=== PATIENT | male | born 1990 ===

== ENCOUNTER 2023-03-23 17:26 | Emergency (ER) | payer BC ==
[~2023-03-23] VITALS: Ht 185.4 cm; Wt 56.4 kg
[2023-03-23 17:56] VITALS: BP 117/78; PULSE 63; RESP 18; TEMP 98.2; O2SAT 99
== END 2023-03-23 18:12 | disposition left against medical advice (07) ==
LOC: ER 17:27
DX: F32.A Depression, unspecified (principal); Z53.21 Procedure and treatment not carried out due to patient leaving prior to being seen by health care provider
CPT/HCPCS: 99281